=== PATIENT | female | born 1985 | race Caucasian/White ===

== ENCOUNTER 2020-11-21 10:29 | Day surgery (SDC) | payer BC ==
[2020-11-16 15:08] LABS: Hemoglobin 8.9 g/dL (12.0-15.5); Mean Corpuscular HGB CONC 28.6 g/dL (32.0-36.0); Mean Corpuscular Volume 66.3 fl (81.6-98.3); Mean Platelet Volume 10.4 fl (7.4-10.4); Platelet Count 447 10x3/uL (150-450); RBC Distribution Width 18.8 % (11.5-14.5); Red Blood Cell (RBC) Count 4.69 10x6/uL (3.90-5.03); White Blood Cell (WBC) Count 8.5 10x3/uL (3.5-10.5)
[2020-11-16 15:20] LABS: BHCG - Serum Negative (NEGATIVE); Pregs Control Background? CLEAR/WHITE (CLR/WHITE); Pregs Control Bar Appear? YES (CONTROL BAR)
[2020-11-17 01:24] LABS: SARS-CoV-2 PCR by NAA Not Detected (NotDetected)
[2020-11-20 12:07] VITALS: BMI 26.2
[2020-11-21] MEDS ORDERED: Famotidine/PF 20 mg/2ml Vial ONE (10:52)
[2020-11-21] MEDS ORDERED: CeleCOXIB 100 MG CAP ONE (10:52)
[2020-11-21] MEDS ORDERED: Gabapentin 300 MG CAP ONE (10:52)
[2020-11-21] MEDS ORDERED: Lidocaine 1% MPF 2 ML VIAL ONE (10:55)
[2020-11-21] MEDS ORDERED: Midazolam HCl 2 mg/2 ml Vial ONE (11:57)
[2020-11-21] MEDS ORDERED: PROPOFOL 20 ML ONE (13:37)
[2020-11-21] MEDS ORDERED: Fentanyl 100 MCG/2 ML VIAL ONE (13:37)
== END 2020-11-21 15:55 | disposition home or self-care (01) ==
LOC: CSHSDC 10:29
PROVIDERS: ATTEND Obstetrics & Gynecology
PROC: 0UDB7ZX Extraction of Endometrium, Via Natural or Artificial Opening, Diagnostic (ICD-10-PCS; principal; 2020-11-21)
PROC: 0UJD8ZZ Inspection of Uterus and Cervix, Via Natural or Artificial Opening Endoscopic (ICD-10-PCS; principal; 2020-11-21)
DX: N92.0 Excessive and frequent menstruation with regular cycle (principal); D64.9 Anemia, unspecified; E03.9 Hypothyroidism, unspecified; K21.9 Gastro-esophageal reflux disease without esophagitis; Z79.899 Other long term (current) drug therapy; Z88.5 Allergy status to narcotic agent; Z20.822 Contact with and (suspected) exposure to COVID-19
CPT/HCPCS: 36415; 84703; 85027; 86850; 86900; 86901; 87635; 88305; J0690; J2250; J2704; J3010; S0028; U0003; U0005